=== PATIENT | female | born 1975 | race Two or more races ===

== ENCOUNTER 2024-10-25 05:48 | Day surgery (SDC) | payer OTHER ==
[2024-10-21 13:41] VITALS: BMI 28.3
[2024-10-25] MEDS ORDERED: oxyCODONE HCL 5 MG TABLET PO PRN (13:17)
[2024-10-25] MEDS ORDERED: ONDANSETRON 4 MG/2 ML VIAL IVPUSH PRN (13:17)
[2024-10-25] MEDS ORDERED: MIDAZOLAM HCL 2 MG/2 ML SINGLE DOSE VIAL ONE (13:29)
[2024-10-25] MEDS ORDERED: PROPOFOL 20 ML ONE (13:29)
[2024-10-25] MEDS ORDERED: LACTATED RINGERS SOLUTION 1,000 ML IV SCH (13:30)
[2024-10-25] MEDS ORDERED: DEXAMETHASONE SOD PHOSPHATE 4 MG/1 ML VIAL ONE (13:34)
[2024-10-25] MEDS ORDERED: ceFAZolin SODIUM 1 GM VIAL ONE (13:34)
[2024-10-25] MEDS: ceFAZolin 2 GRAM PREMIX BAG IVPB ONE ×2 (13:34)
[2024-10-25] MEDS ORDERED: KETOROLAC TROMETHAMINE 30 MG/1 ML VIAL ONE (13:34)
[2024-10-25] MEDS ORDERED: SEVOFLURANE 250 ML BTL ONE (13:46)
[2024-10-25] MEDS ORDERED: IBUPROFEN 600 MG TABLET (FP) PO PRN (14:43)
[2024-10-25] MEDS ORDERED: IBUPROFEN 800 MG/8 ML IJ IVPB PRN (14:43)
[2024-10-25] MEDS ORDERED: ACETAMINOPHEN 325 MG TABLET (FP) PO PRN (14:43)
[2024-10-25] MEDS ORDERED: ACETAMINOPHEN INJECTION 100 ML ONE (14:44)
[2024-10-25] MEDS: ACETAMINOPHEN 1000 MG/100 ML BAG IVPB PRN (14:48)
[2024-10-25] MEDS ORDERED: oxyCODONE HCL 10 MG SUSTAINED ACTING TABLET ONE (16:19)
[2024-10-25] MEDS: oxyCODONE HCL 5 MG TABLET PO ONE (16:28)
[2024-10-25 16:57] VITALS: RESP 20; TEMP 96.8
[2024-10-25 20:09] VITALS: BP 128/74; PULSE 68
[2024-10-26] MEDS ORDERED: oxyCODONE HCL 5 MG TABLET PO PRN ×2 (02:43)
== END 2024-10-25 18:50 | disposition home or self-care (01) ==
LOC: JASU-SURG 05:48
PROVIDERS: ATTEND Obstetrics & Gynecology
PROC: 0U5B8ZZ Destruction of Endometrium, Via Natural or Artificial Opening Endoscopic (ICD-10-PCS; principal; 2024-10-25 13:00)
DX: N92.0 Excessive and frequent menstruation with regular cycle (principal)
CPT/HCPCS: 81025; 86850; 86900; 86901; 88305-TC; 94760